=== PATIENT | female | born 1990 | race Two or more races ===

== ENCOUNTER 2023-09-19 15:22 | Inpatient (IN) | payer MEDICAID, SELFPAY ==
[2023-09-19 16:28] VITALS: BP 117/77; PULSE 88; RESP 16; TEMP 36.8; O2SAT 100
[2023-09-19 16:30] VITALS: BMI 29.8
--- NOTE | 2023-09-19 16:47 | P.CONHOSP_ITS ---
History of Present Illness Data of Consult Service Date: 09/19/23 Primary Care Provider: Unknown Physician HPI Reason for consult: Admission H&P Pt is a 33-year-old female with no known significant PMH not on home medications who is admitted to M3 psychiatry unit for labile affect and bizarre behavior. Patient was apparently found in [facility] parking lot with her car running and acting oddly, including delayed response and crying over the beauty of the dictionary, which she describes as ?the most beautiful book I have ever read. In the ED patient was initially resistant and refused crisis evaluation or to allow medical examination or labs. Medical consult for admission H&P. ?Patient seen and examined on the unit where she is calm and cooperative, though with poor eye contact and delayed response for many questions. Patient denies any significant PMH or acute medical concerns. No shortness of breath or difficulty breathing. Denies fever, chills, nausea, vomiting, abdominal pain. No chest pain/pressure, palpitations. Denies headache or acute vision changes. No changes to bowel bladder habits. Review of Systems 2 Review of Systems: Patient has no acute medical concerns at this time [facility] Social History Household Members: Children Household Members Other:: son, staying with dad currently Housing: [facility] Housing Other:: [facility] Do you presently have visiting nurse or other home services: No Patient Tobacco Use Status: Current everyday Tobacco user Tobacco use type: Cigarette Cigarette Packs Per Day: 1 Cigarettes Per Day: 20.0 Smoked in Last 30 Days: Yes e-Cigarette/Vaping Use: Former Use Patient Interested in Nicotine Replacement: Yes Patient Given Instructions on How to Stop Smoking: Yes Date Education Initiated: 09/19/23 Second Hand Smoke Exposure: No Use of substances other than those prescribed or required for medical reasons: Yes Substance Use Type: [employer] Drugs, Crack/Cocaine, Former Substance User and Painkillers Substance Use Type Other:: years ago Last Used Substance: Unknown Last Used Substance Other:: years ago Currently Displaying Signs/Symptoms of Drug Intoxication Withdrawal: No Any prior treatment program specific to substance use: No Have you been hit, kicked, punched, or otherwise hurt by someone within the past year? If so, by whom?: No Do you feel safe in your current relationship?: No Is there a partner from a previous relationship who is making you feel unsafe now?: No Are you made to feel afraid or neglected: No Spiritual Healthcare Practices: Not at this time Yazdanism Healthcare Practices: Not at this time Cultural Healthcare Practices: Not at this time Advance Directives: No Advance Directives Information Provided: No Do you have thoughts of harming others: None Do you have a plan to hurt others: No Plan Recently lost weight without trying: No How much weight loss: Not applicable Eating poorly because of decreased appetite: No Nutrition screen score: 0 Nutrition Risks: No Nutritional Risk Patient : No : No Poor oral hygiene: No Meds Allergies Allergy/AdvReac Type Severity Reaction Status Date / Time No Known Allergies Allergy Verified 09/19/23 16:19 Active Medications: Current Medications Acetaminophen (Acetaminophen 325 Mg Tablet) 650 mg PO Q6H PRN PRN Reason: Headache/Pain Mild Scale (1-3) Al Hydroxide/Mg Hydroxide (Magnesium Hydrox/Alum Hydrox 30 Ml Oral.Susp) 30 ml PO Q6H PRN PRN Reason: Heartburn/Nausea Hydroxyzine HCl (Hydroxyzine Hcl 25 Mg Tablet) 25 mg PO Q6H PRN PRN Reason: Anxiety Magnesium Hydroxide (Milk Of Magnesia 30 Ml Oral.Susp) 30 ml PO DAILY PRN PRN Reason: Constipation Nicotine (Nicotine 21 Mg Patch.Td24) 21 mg TRANSDERMA DAILY [facility] Nicotine Polacrilex (Nicotine Polacrilex Lozenge 4 Mg Lozenge) 4 mg BUCCAL Q2H PRN PRN Reason: Nicotine Cravings Trazodone HCl (Trazodone Hcl 50 Mg Tablet) 50 mg PO BEDTIME MRX1 PRN PRN Reason: Insomnia Physical Exam 2 Vital Signs and Narrative: Vital Signs: Last Vital Signs Temp 98.2 F 09/19/23 16:28 Pulse 88 09/19/23 16:28 Resp 16 09/19/23 16:28 BP 117/77 09/19/23 16:28 Pulse Ox 100 09/19/23 16:28 O2 Del Method Room Air 09/19/23 16:28 BMI result Body Mass Index 29.8 General: AOx3, no acute distress Resp: CTA bilaterally CVS: S1, S2, RRR GI: +BS, NT, no distention Skin: Warm, dry Neuro: Cranial nerves II-XII grossly intact bilaterally. Motor grossly intact bilaterally. Extremities: No edema Psych: Calm, cooperative, minimal eye contact while responding, delayed response Results Labs 09/20/23 09:12 Assessment and Plan (1) Medical clearance for psychiatric admission: Status: Acute Plan Pt is a 33-year-old female with no known significant PMH not on home medications who is admitted to psychiatry unit for labile affect and bizarre behavior. Patient was apparently found in [facility] parking lot with her car running and acting oddly, including delayed response and crying over the beauty of the dictionary, which she describes as ?the most beautiful book I have ever read. In the ED patient was initially resistant and refused crisis evaluation or to allow medical examination or labs. Medical consult for admission H&P. ? Mood disorder Plan as per psychiatry Pt otherwise has no known chronic medical conditions or acute medical complaints at this time. Will sign off for now. Thank you for allowing us to participate in the care of this patient. Please re-consult if any acute issue arises.
--- NOTE | 2023-09-19 17:19 | PC.ADMIT ---
Nursing admission note: 33 year old female DX: BiPolar disorder. Referref for admission by [facility]. Patient arrived to unit on section 12a, signed conditional voluntary for admission after speaking with ELISABET KEVIN. Patient was transported to [facility] via EMS after being found in her car with it running at [facility] for about 4 hours. She was in her car reading a book when police approached her, disorganized, and under some form of substance . She was giggling to herself then began crying saying how beautiful the book was; of note, the book was a dictionary. Patient was calm and cooperative with admission process. Skin check completed with ancillary staff AB. Unremarkable. Patient presents with intermittent eye contact, frequently looking around room. Endorses depression, rated 6/10, anxiety rated 3/10. Affect congruent. Denies SI/HI plan or intent. Responds to assessment questions however little spontaneous discussion. Appears preoccupied. Poverty of thought with latency in response. Denies A/V hallucinations, denies paranoia or suspiciousness. Patient is poor historian. Speech in monotone. Denies sleep or appetite disturbances. Reports prior hospitalization for behavioral health. Denies medical problems. NKA, NKDA. TOX screen negative. Patient oriented to unit, placed on unit safety checks. See crisis evaluation/nursing assessment for further details.
[2023-09-19] MEDS: Nicotine Polacrilex Lozenge 4 MG LOZENGE BUCCAL (18:53)
[2023-09-20] MEDS: Nicotine Polacrilex Lozenge 4 MG LOZENGE BUCCAL ×2 (06:16→23:15)
[2023-09-20 08:00] VITALS: BP 101/59; PULSE 87; RESP 14; TEMP 37; O2SAT 99
--- NOTE | 2023-09-20 09:18 | P.HPPS_ITS ---
HPI Date of Service: 09/20/23 Chief Complaint: Bipolar Sources of Information: patient interviewed, chart reviewed and crisis/core team assessment reviewed HPI Subjective Notes: Sparks Warning and Conditional Voluntary Narrative: Patient is a 33 year old female with hx of Bipolar d/o who was brought into ER d/t confusion and disorganized behavior. Per crisis report, pt was found in her car with it running at [facility] for about four hours, reading a book, when the police approached her, pt presented disorganized, giggling to herself and then began crying, saying how beautiful the book was; of note, the book was a dictionary. Pt denied SI/HI/VH/AH. Pt resides in [place], [place]; where the police have been called for multiple wellness check in recent months. Pt provided minimal information during crisis assessment. 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 denies any substance use;UTOX negative. During admission assessment, social media editor, Bel, present. Pt presents alert and oriented, calm, cooperative but guarded. delayed responses to questions. Pt stated, they brought me to the hospital because I was confused and disoriented. I was reading in a place I shouldn't have been reading. I was reading a beautiful book, the dictionary. It made me cry. I saw the meanings of things that I didn't know were beautiful ; pt became tearful when discussing topic. Pt hesitant when answering questions regarding her living situation, marital status and occupation. Pt reports she has been hospitalized several times ; but could not provide further details. Pt reports hx of taking [place] but had a bad reaction ; pt could not provide any more detail and does not recall other medications she has tried in the past. Pt stated, I'll take whatever you give me to feel better ; discussed risks/benefits of Depakote and Risperidal; pt agreed to trial. Past Psychiatric History: Pt reports she has been psychiatrically hospitalized several times; last inpatient admission being March 2023. Pt was unable to state name of hospital or reason for hospitalization. Pt reports she does not have an outpatient therapist. Outpatient prescirber: Amari Otoole Medical Evaluation Reviewed: Yes [facility] Family History: unknown Social History: lives alone, single, 1 son (10 y/o, lives with his father), works emergency department clinician as hairdresser Substance History: hx of cocaine, marijuana and opioid use. pt reports has not used substances in 7 years. Trauma History: yes;childhood Diagnostics Vital Signs (24Hr): Vital Signs - 24 hr 09/19/23 16:28 09/20/23 08:00 Temperature 98.2 F 98.6 F Pulse Rate 88 87 Respiratory Rate 16 14 Blood Pressure 117/77 101/59 L Pulse Oximetry 100 99 Oxygen Delivery Method Room Air Room Air BMI result Body Mass Index 29.8 Labs 09/20/23 09:12 Meds/Allergies Allergies Allergies Allergy/AdvReac Type Severity Reaction Status Date / Time No Known Allergies Allergy Verified 09/19/23 16:19 Mental Status Exam Mental Status Exam Narrative: Pt is alert and oriented; behavior is cooperative, calm, guarded; dressed in casual attire; mood is described as okay ; eye contact appropriate; Speech is delayed,normal volume and not pressured; confused, slowed thinking; denies SI/HI/VH/AH Assessment & Plan Assessment & Plan (1) Bipolar 1 disorder: Status: Acute Code(s): F31.9 - Bipolar disorder, unspecified (2) PTSD (post-traumatic stress disorder): Status: Acute Code(s): F43.10 - Post-traumatic stress disorder, unspecified Plan Patient is a 33 year old female with hx of Bipolar d/o who was brought into ER d/t confusion and disorganized behavior. Plan: CV 15 minute safety checks obtain collateral Start: Depakote 250mg PO BID Risperidal 1mg PO BID Cogentin 0.5mg PO bedtime discharge planning Patient educated on: diagnosis, medication risk/benefits and therapeutic strategies Informed Consent: understands and further education needed Reason for continued inpatient stay Substantial Risk for: med/psych decompensation Statement Statement: I have reviewed the history and physical and performed a pertinent examination on my patient. No changes have occurred unless specified. If the History and Physical was not performed prior to admission, the Hospitalist's service will be consulted for completing the admission physical. Time Spent With Patient Time: Total time managing care of this patient today _60___ minutes.
[2023-09-20 10:00] LABS: Alanine Aminotransferase 8 U/L (0-31); Albumin Level 4.8 g/dL (3.5-5.0); Alkaline Phosphatase 56 U/L (39-117); Anion Gap 12 (12-20); Aspartate Amino Transferase 12 U/L (5-31); Bilirubin Total 0.5 mg/dL (0.0-1.0); Blood Urea Nitrogen 12 mg/dL (9-16); Calcium 9.7 mg/dL (8.4-10.2); Carbon Dioxide 28 mmol/L (22-29); Chloride 106 mmol/L (96-108); Cholesterol 175 mg/dL (<200); Creatinine Clr Calc Pharmacy 107.2; Estimated Glomerular Filt Rate > 60; Glucose Fasting 83 mg/dL (60-99); HDL Cholesterol 58 mg/dL (>40); LDL Cholesterol Calculated 106 mg/dL (<100); Potassium 3.9 mmol/L (3.3-5.1); Sodium 142 mmol/L (135-145); Total Protein 7.3 g/dL (6.5-8.0); Triglycerides 57 mg/dL (<150)
[2023-09-20] MEDS: Nicotine 21 MG PATCH.TD24 TRANSDERMA (10:12)
[2023-09-20] MEDS: risperiDONE 1 MG TABLET PO ×2 (17:41→22:43)
[2023-09-20] MEDS: Divalproex Sodium 250 MG TABLET.DR PO ×2 (18:00→22:43)
[2023-09-20 20:00] VITALS: BP 95/54; PULSE 96; RESP 18; TEMP 36.8; O2SAT 97
[2023-09-20] MEDS: Benztropine Mesylate 0.5 MG TABLET PO (22:43)
[2023-09-21 07:46] VITALS: BP 110/65; PULSE 97; RESP 16; TEMP 36.6; O2SAT 100
[2023-09-21] MEDS: Nicotine 21 MG PATCH.TD24 TRANSDERMA (08:40)
[2023-09-21] MEDS: Nicotine Polacrilex Lozenge 4 MG LOZENGE BUCCAL ×2 (08:41→18:05)
--- NOTE | 2023-09-21 08:58 | P.PNPSI_ITS ---
Subjective Subjective Date of Service: 09/21/23 Reason For Visit: Bipolar Interim History: Patient reports she doesn't want to take her medications because I didn't feel good when I took them and couldn't sleep She is guarded and has some latency responding to questions. She is not willing to try other medications today. She says she doesn't want to retry [place]. Denies SI/HI/AVH. Appears internally preoccupied. Review of Systems Review of Systems Patient has no acute medical concerns at this time Constitutional: Reports as per HPI Eyes: Reports as per HPI Reports as per HPI Cardiovascular: Reports as per HPI Respiratory: Reports as per HPI Gastrointestinal: Reports as per HPI Musculoskeletal: Reports as per HPI Skin/Breast: Reports as per HPI Reports as per HPI Psychiatric: Reports as per HPI Endocrine: Reports as per HPI Hematologic/Lymphatic: Reports as per HPI Allergic/Immunologic: Reports as per HPI Mental Status Exam Mental Status Exam Narrative: Pt is alert and oriented; behavior is cooperative, calm, guarded; dressed in casual attire; mood is described as okay ; eye contact appropriate; Speech is delayed,normal volume and not pressured; confused, slowed thinking; denies SI/HI/VH/AH Diagnostics Vital Signs (24Hr): Vital Signs - 24 hr 09/20/23 20:00 09/21/23 07:46 Temperature 98.3 F 97.9 F Pulse Rate 96 97 Respiratory Rate 18 16 Blood Pressure 95/54 L 110/65 Pulse Oximetry 97 100 Oxygen Delivery Method Room Air Room Air BMI result Body Mass Index 29.8 Labs 09/20/23 09:12 Labs: Laboratory Results - last 48 hr 09/20/23 09:12 Sodium 142 Potassium 3.9 Chloride 106 Carbon Dioxide 28 Anion Gap 12 BUN 12 Creatinine 0.73 Estim Creat Clear Calc 107.2 Estimated GFR > 60 Fasting Glucose 83 Calcium 9.7 Total Bilirubin 0.5 AST 12 ALT 8 Alkaline Phosphatase 56 Total Protein 7.3 Albumin 4.8 Triglycerides 57 Cholesterol 175 LDL Cholesterol, Calc 106 H HDL Cholesterol 58 Medications Medications Current Medications Acetaminophen (Acetaminophen 325 Mg Tablet) 650 mg PO Q6H PRN PRN Reason: Headache/Pain Mild Scale (1-3) Al Hydroxide/Mg Hydroxide (Magnesium Hydrox/Alum Hydrox 30 Ml Oral.Susp) 30 ml PO Q6H PRN PRN Reason: Heartburn/Nausea Benztropine Mesylate (Benztropine Mesylate 0.5 Mg Tablet) 0.5 mg PO BEDTIME [facility] Last Admin: 09/20/23 22:43 Dose: 0.5 mg Divalproex Sodium (Divalproex Sodium 250 Mg Tablet.Dr) 250 mg PO BID [facility] Last Admin: 09/20/23 22:43 Dose: 250 mg Hydroxyzine HCl (Hydroxyzine Hcl 25 Mg Tablet) 25 mg PO Q6H PRN PRN Reason: Anxiety Magnesium Hydroxide (Milk Of Magnesia 30 Ml Oral.Susp) 30 ml PO DAILY PRN PRN Reason: Constipation Nicotine (Nicotine 21 Mg Patch.Td24) 21 mg TRANSDERMA DAILY [facility] Last Admin: 09/21/23 08:40 Dose: 21 mg Nicotine Polacrilex (Nicotine Polacrilex Lozenge 4 Mg Lozenge) 4 mg BUCCAL Q2H PRN PRN Reason: Nicotine Cravings Last Admin: 09/21/23 08:41 Dose: 4 mg Risperidone (Risperidone 1 Mg Tablet) 1 mg PO BID [facility] Last Admin: 09/20/23 22:43 Dose: 1 mg Trazodone HCl (Trazodone Hcl 50 Mg Tablet) 50 mg PO BEDTIME MRX1 PRN PRN Reason: Insomnia Allergies Allergies Allergy/AdvReac Type Severity Reaction Status Date / Time No Known Allergies Allergy Verified 09/19/23 16:19 Assessment & Plan Assessment & Plan (1) Bipolar 1 disorder: Status: Acute Code(s): F31.9 - Bipolar disorder, unspecified (2) PTSD (post-traumatic stress disorder): Status: Acute Code(s): F43.10 - Post-traumatic stress disorder, unspecified Plan Patient is a 33 year old female with hx of Bipolar d/o who was brought into ER d/t confusion and disorganized behavior. Plan: CV 15 minute safety checks obtain collateral Start: Depakote 250mg PO BID Risperidal 1mg PO BID Cogentin 0.5mg PO bedtime discharge planning 09/20: continue current management and treatment plan. Consider alternative medication regimen and explore resistance to medications. Reason for continued inpatient stay Substantial Risk for: inability to function and rapid decompensation Time Spent With Patient Time: Total time managing care of this patient today ____ minutes.
[2023-09-21 20:00] VITALS: BP 110/68; PULSE 98; RESP 18; TEMP 36.8; O2SAT 100
[2023-09-22 07:41] VITALS: BP 111/67; PULSE 92; RESP 16; TEMP 36.5; O2SAT 100
--- NOTE | 2023-09-22 16:00 | P.PNPSI_ITS ---
Subjective Subjective Date of Service: 09/22/23 Reason For Visit: Bipolar Interim History: Patient remains guarded and paranoid. She is refusing medications saying she didn't feel well when she took them and that she doesn't need medications. She is visible on the unit but doesn't interact much with others. She appeared paranoid before lunch and refused to have her lunch and pushed it away. Later she asked for it and ate 100%. She is guarded and has some latency responding to questions. She is not willing to try other medications. She says she doesn't want to retry [place]. Denies SI/HI/AVH. Appears internally preoccupied. Medication Compliance: No Side effects from medications: No Review of Systems Review of Systems Patient has no acute medical concerns at this time Constitutional: Reports as per HPI Eyes: Reports as per HPI Reports as per HPI Cardiovascular: Reports as per HPI Respiratory: Reports as per HPI Gastrointestinal: Reports as per HPI Musculoskeletal: Reports as per HPI Skin/Breast: Reports as per HPI Reports as per HPI Psychiatric: Reports as per HPI Endocrine: Reports as per HPI Hematologic/Lymphatic: Reports as per HPI Allergic/Immunologic: Reports as per HPI Mental Status Exam Mental Status Exam Narrative: Pt is alert and oriented; behavior is cooperative, calm, guarded; dressed in casual attire; mood is described as okay ; eye contact appropriate; Speech is delayed,normal volume and not pressured; confused, slowed thinking; denies SI/HI/VH/AH Diagnostics Vital Signs (24Hr): Vital Signs - 24 hr 09/21/23 20:00 09/22/23 07:41 Temperature 98.2 F 97.7 F Pulse Rate 98 92 Respiratory Rate 18 16 Blood Pressure 110/68 111/67 Pulse Oximetry 100 100 Oxygen Delivery Method Room Air Room Air BMI result Body Mass Index 29.8 Labs 09/20/23 09:12 Medications Medications Current Medications Acetaminophen (Acetaminophen 325 Mg Tablet) 650 mg PO Q6H PRN PRN Reason: Headache/Pain Mild Scale (1-3) Al Hydroxide/Mg Hydroxide (Magnesium Hydrox/Alum Hydrox 30 Ml Oral.Susp) 30 ml PO Q6H PRN PRN Reason: Heartburn/Nausea Benztropine Mesylate (Benztropine Mesylate 0.5 Mg Tablet) 0.5 mg PO BEDTIME [facility] Last Admin: 05/25/24 22:14 Dose: Not Given Divalproex Sodium (Divalproex Sodium 250 Mg Tablet.Dr) 250 mg PO BID [facility] Last Admin: 09/22/23 08:47 Dose: Not Given Hydroxyzine HCl (Hydroxyzine Hcl 25 Mg Tablet) 25 mg PO Q6H PRN PRN Reason: Anxiety Magnesium Hydroxide (Milk Of Magnesia 30 Ml Oral.Susp) 30 ml PO DAILY PRN PRN Reason: Constipation Nicotine (Nicotine 21 Mg Patch.Td24) 21 mg TRANSDERMA DAILY [facility] Last Admin: 09/22/23 08:47 Dose: Not Given Nicotine Polacrilex (Nicotine Polacrilex Lozenge 4 Mg Lozenge) 4 mg BUCCAL Q2H PRN PRN Reason: Nicotine Cravings Last Admin: 09/21/23 18:05 Dose: 4 mg Risperidone (Risperidone 1 Mg Tablet) 1 mg PO BID [facility] Last Admin: 09/22/23 08:48 Dose: Not Given Trazodone HCl (Trazodone Hcl 50 Mg Tablet) 50 mg PO BEDTIME MRX1 PRN PRN Reason: Insomnia Allergies Allergies Allergy/AdvReac Type Severity Reaction Status Date / Time No Known Allergies Allergy Verified 09/19/23 16:19 Assessment & Plan Assessment & Plan (1) Bipolar 1 disorder: Status: Acute Code(s): F31.9 - Bipolar disorder, unspecified (2) PTSD (post-traumatic stress disorder): Status: Acute Code(s): F43.10 - Post-traumatic stress disorder, unspecified Plan Patient is a 33 year old female with hx of Bipolar d/o who was brought into ER d/t confusion and disorganized behavior. Plan: CV 15 minute safety checks obtain collateral Start: Depakote 250mg PO BID Risperidal 1mg PO BID Cogentin 0.5mg PO bedtime discharge planning 09/20: continue current management and treatment plan. Consider alternative medication regimen and explore resistance to medications. 09/21: continue current management and treatment plan. Reason for continued inpatient stay Substantial Risk for: inability to function and rapid decompensation Time Spent With Patient Time: Total time managing care of this patient today ____ minutes.
[2023-09-22 20:00] VITALS: BP 115/56; PULSE 89; RESP 16; TEMP 36.9; O2SAT 95
[2023-09-22] MEDS: Nicotine Polacrilex Lozenge 4 MG LOZENGE BUCCAL (22:05)
[2023-09-23] MEDS: Nicotine Polacrilex Lozenge 4 MG LOZENGE BUCCAL ×4 (06:43→18:39)
[2023-09-23 08:01] LABS: Ammonia 26 umol/L (13-55)
[2023-09-23 08:07] LABS: Alanine Aminotransferase 8 U/L (0-31); Albumin Level 4.8 g/dL (3.5-5.0); Alkaline Phosphatase 66 U/L (39-117); Aspartate Amino Transferase 13 U/L (5-31); Bilirubin Direct 0.1 mg/dL (0.0-0.5); Bilirubin Total 0.4 mg/dL (0.0-1.0); Total Protein 7.6 g/dL (6.5-8.0)
[2023-09-23 08:10] VITALS: BP 110/72; PULSE 100; RESP 14; TEMP 36.9; O2SAT 98
[2023-09-23 08:11] LABS: Valproate < 12.5 mcg/mL (50.0-100.0)
--- NOTE | 2023-09-23 10:53 | P.PNPSI_ITS ---
Subjective Subjective Date of Service: 09/23/23 Reason For Visit: Bipolar Interim History: Patient is reserved with peers. She is not taking medications. She maintains she was dehydrated which is why she got confused and disoriented the day she was admitted to the hospital and goes on to talk about her apartment not having clean water and that she didn't buy clean water and wasn't drinking. Guarded and paranoid. She is refusing medications. She is visible on the unit but doesn't interact much with others. Denies SI/HI/AVH. Appears internally preoccupied at times. Review of Systems Review of Systems Patient has no acute medical concerns at this time Constitutional: Reports as per HPI Eyes: Reports as per HPI Reports as per HPI Cardiovascular: Reports as per HPI Respiratory: Reports as per HPI Gastrointestinal: Reports as per HPI Musculoskeletal: Reports as per HPI Skin/Breast: Reports as per HPI Reports as per HPI Psychiatric: Reports as per HPI Endocrine: Reports as per HPI Hematologic/Lymphatic: Reports as per HPI Allergic/Immunologic: Reports as per HPI Mental Status Exam Mental Status Exam Narrative: Pt is alert and oriented; behavior is cooperative, calm, guarded; dressed in casual attire; mood is described as okay ; eye contact appropriate; Speech is delayed,normal volume and not pressured; confused, slowed thinking; denies SI/HI/VH/AH Diagnostics Vital Signs (24Hr): Vital Signs - 24 hr 09/22/23 20:00 09/23/23 08:10 Temperature 98.5 F 98.5 F Pulse Rate 89 100 Respiratory Rate 16 14 Blood Pressure 115/56 L 110/72 Pulse Oximetry 95 98 Oxygen Delivery Method Room Air Room Air BMI result Body Mass Index 29.8 Labs 09/20/23 09:12 Labs: Laboratory Results - last 48 hr 09/23/23 07:27 Hold Purple Top SEE NOTE Total Bilirubin 0.4 Direct Bilirubin 0.1 AST 13 ALT 8 Alkaline Phosphatase 66 Ammonia 26 Total Protein 7.6 Albumin 4.8 Valproic Acid < 12.5 L Medications Medications Current Medications Acetaminophen (Acetaminophen 325 Mg Tablet) 650 mg PO Q6H PRN PRN Reason: Headache/Pain Mild Scale (1-3) Al Hydroxide/Mg Hydroxide (Magnesium Hydrox/Alum Hydrox 30 Ml Oral.Susp) 30 ml PO Q6H PRN PRN Reason: Heartburn/Nausea Benztropine Mesylate (Benztropine Mesylate 0.5 Mg Tablet) 0.5 mg PO BEDTIME [facility] Last Admin: 09/22/23 22:10 Dose: Not Given Divalproex Sodium (Divalproex Sodium 250 Mg Tablet.Dr) 250 mg PO BID [facility] Last Admin: 09/23/23 08:34 Dose: Not Given Hydroxyzine HCl (Hydroxyzine Hcl 25 Mg Tablet) 25 mg PO Q6H PRN PRN Reason: Anxiety Magnesium Hydroxide (Milk Of Magnesia 30 Ml Oral.Susp) 30 ml PO DAILY PRN PRN Reason: Constipation Nicotine (Nicotine 21 Mg Patch.Td24) 21 mg TRANSDERMA DAILY [facility] Last Admin: 09/23/23 08:34 Dose: Not Given Nicotine Polacrilex (Nicotine Polacrilex Lozenge 4 Mg Lozenge) 4 mg BUCCAL Q2H PRN PRN Reason: Nicotine Cravings Last Admin: 09/23/23 09:35 Dose: 4 mg Risperidone (Risperidone 1 Mg Tablet) 1 mg PO BID [facility] Last Admin: 09/23/23 08:34 Dose: Not Given Trazodone HCl (Trazodone Hcl 50 Mg Tablet) 50 mg PO BEDTIME MRX1 PRN PRN Reason: Insomnia Allergies Allergies Allergy/AdvReac Type Severity Reaction Status Date / Time No Known Allergies Allergy Verified 09/19/23 16:19 Assessment & Plan Assessment & Plan (1) Bipolar 1 disorder: Status: Acute Code(s): F31.9 - Bipolar disorder, unspecified (2) PTSD (post-traumatic stress disorder): Status: Acute Code(s): F43.10 - Post-traumatic stress disorder, unspecified Plan Patient is a 33 year old female with hx of Bipolar d/o who was brought into ER d/t confusion and disorganized behavior. Plan: CV 15 minute safety checks obtain collateral Start: Depakote 250mg PO BID Risperidal 1mg PO BID Cogentin 0.5mg PO bedtime discharge planning 09/20: continue current management and treatment plan. Consider alternative medication regimen and explore resistance to medications. 09/21: continue current management and treatment plan. 09/22: continue current management and treatment plan. Reason for continued inpatient stay Substantial Risk for: inability to function Time Spent With Patient Time: Total time managing care of this patient today ____ minutes.
[2023-09-23 20:00] VITALS: BP 116/73; PULSE 100; RESP 14; TEMP 36.8; O2SAT 100
[2023-09-24] MEDS: Nicotine Polacrilex Lozenge 4 MG LOZENGE BUCCAL ×5 (04:15→22:23)
[2023-09-24 07:15] VITALS: BP 119/80; PULSE 88; RESP 16; TEMP 36.6; O2SAT 100
--- NOTE | 2023-09-24 12:59 | P.PNPSI_ITS ---
Subjective Subjective Date of Service: 09/24/23 Reason For Visit: Bipolar Subjective Notes: Conditional Voluntary Healthcare Proxy: No Guardianship: No Medical Problems Affecting Mental Status: No Interim History: Team reports pt has refused medications during the weekend (Valproate, Risperdal, Benztropine). She is not open to a retrial of [place] or any other new agents at this time, citing medications cause her not to feel well and to have poor sleep. She cites rationale for symptoms prior to admission as being from dehydration. Team reports she has had a guarded, paranoid and isolative presentation. No new diagnostics, CMP is WNL, Valproate <12.5. Slept 5 hours last night. She is seen in her room today, awake, in bed. She reports she is well, sleeping well, feeling well but a bit depressed today and wanting to get back to her life. She continues to decline medication trials, stating that when discharged she plans to contact her former medication provider, Am[facility] of [place] to discuss a regime. Offered to make contact so she may begin an agent while hospitalized, however she declined. Reviewed with team. Pt has had a presentation change since her primary nurse working with her on 09/19-she had agreed to medications on admission. Denies SI/HI/AH/VH Medication Compliance: No Side effects from medications: No Attending Groups: Intermittent Review of Systems Acute medical concerns: No Medical Review of Systems: unchanged Review of Systems Review of Systems Yes all other systems are reviewed and are negative (denies) Mental Status Exam Mental Status Exam Patient Appearance: Appropriate Patient Orientation: Person, Place and Situation Level of Consciousness: Alert Patient Behavior: Guarded, Talkative, Cooperative, Suspicious and Good Eye Contact Mood Description: Constricted Affect Description: Constricted Patient Cognition Impaired: No Speech Pattern: Spontaneous Speech Memory Description: Episodic Impaired Delusions: Paranoid Ideation and Present Thought Process: Distracted Thought Content: positive for Circumstantial, positive for Perseveration and positive for Suicidal Ideation (denies) Depressive Symptoms: Difficulty Sleeping Judgement: Fair Diagnostics Vital Signs (24Hr): Vital Signs - 24 hr 09/23/23 20:00 09/24/23 07:15 Temperature 98.3 F 97.9 F Pulse Rate 100 88 Respiratory Rate 14 16 Blood Pressure 116/73 119/80 Pulse Oximetry 100 100 Oxygen Delivery Method Room Air Room Air BMI result Body Mass Index 29.8 Labs 05/24/24 09:12 Labs: Laboratory Results - last 48 hr 09/23/23 07:27 Hold Purple Top SEE NOTE Total Bilirubin 0.4 Direct Bilirubin 0.1 AST 13 ALT 8 Alkaline Phosphatase 66 Ammonia 26 Total Protein 7.6 Albumin 4.8 Valproic Acid < 12.5 L Medications Medications Current Medications Acetaminophen (Acetaminophen 325 Mg Tablet) 650 mg PO Q6H PRN PRN Reason: Headache/Pain Mild Scale (1-3) Al Hydroxide/Mg Hydroxide (Magnesium Hydrox/Alum Hydrox 30 Ml Oral.Susp) 30 ml PO Q6H PRN PRN Reason: Heartburn/Nausea Benztropine Mesylate (Benztropine Mesylate 0.5 Mg Tablet) 0.5 mg PO BEDTIME [facility] Last Admin: 09/23/23 21:47 Dose: Not Given Divalproex Sodium (Divalproex Sodium 250 Mg Tablet.Dr) 250 mg PO BID [facility] Last Admin: 09/24/23 08:20 Dose: Not Given Hydroxyzine HCl (Hydroxyzine Hcl 25 Mg Tablet) 25 mg PO Q6H PRN PRN Reason: Anxiety Magnesium Hydroxide (Milk Of Magnesia 30 Ml Oral.Susp) 30 ml PO DAILY PRN PRN Reason: Constipation Nicotine (Nicotine 21 Mg Patch.Td24) 21 mg TRANSDERMA DAILY [facility] Last Admin: 09/24/23 08:20 Dose: Not Given Nicotine Polacrilex (Nicotine Polacrilex Lozenge 4 Mg Lozenge) 4 mg BUCCAL Q2H PRN PRN Reason: Nicotine Cravings Last Admin: 09/24/23 10:37 Dose: 4 mg Risperidone (Risperidone 1 Mg Tablet) 1 mg PO BID [facility] Last Admin: 09/24/23 08:20 Dose: Not Given Trazodone HCl (Trazodone Hcl 50 Mg Tablet) 50 mg PO BEDTIME MRX1 PRN PRN Reason: Insomnia Allergies Allergies Allergy/AdvReac Type Severity Reaction Status Date / Time No Known Allergies Allergy Verified 09/19/23 16:19 Assessment & Plan Assessment & Plan (1) Bipolar 1 disorder: Status: Acute Code(s): F31.9 - Bipolar disorder, unspecified (2) PTSD (post-traumatic stress disorder): Status: Acute Code(s): F43.10 - Post-traumatic stress disorder, unspecified Plan Patient is a 33 year old female with hx of Bipolar d/o who was brought into ER d/t confusion and disorganized behavior. Plan: CV 15 minute safety checks obtain collateral Start: Depakote 250mg PO BID Risperidal 1mg PO BID Cogentin 0.5mg PO bedtime discharge planning 09/20: continue current management and treatment plan. Consider alternative medication regimen and explore resistance to medications. 09/21: continue current management and treatment plan. 09/22: continue current management and treatment plan. 09/23: continue to offer options for treatment. Reason for continued inpatient stay Substantial Risk for: rapid decompensation Time Spent With Patient Time: Total time managing care of this patient today ____ minutes.
[2023-09-24 20:00] VITALS: BP 114/68; PULSE 89; RESP 14; TEMP 36.5; O2SAT 97
[2023-09-25] MEDS: Nicotine Polacrilex Lozenge 4 MG LOZENGE BUCCAL ×5 (06:50→21:47)
[2023-09-25 07:05] VITALS: BP 110/71; PULSE 98; RESP 16; TEMP 37.1; O2SAT 100
--- NOTE | 2023-09-25 09:54 | P.PNPSI_ITS ---
Subjective Subjective Date of Service: 09/25/23 Reason For Visit: Bipolar Subjective Notes: Conditional Voluntary Healthcare Proxy: No Guardianship: No Medical Problems Affecting Mental Status: No Interim History: Pt allows a brief conversation in the hallway where she reports, no change. No meds, no calling my psychiatrist. I am doing well here, without medicine, with the treatment I choose to do. Presents with a suspicious, guarded, evasive stance. Declines treatment, yet not asking to leave. When this is attempted to be addressed, yes, I am being helped here, without medication. Medication Compliance: No Side effects from medications: No Attending Groups: Intermittent ( sometimes ) Review of Systems Acute medical concerns: No Medical Review of Systems: unchanged Review of Systems Review of Systems Yes all other systems are reviewed and are negative (denies) Mental Status Exam Mental Status Exam Patient Appearance: Appropriate Patient Orientation: Person, Place and Situation Level of Consciousness: Alert Patient Behavior: Guarded, Talkative, Cooperative, Suspicious and Good Eye Contact Mood Description: Constricted Affect Description: Constricted Patient Cognition Impaired: No Speech Pattern: Spontaneous Speech Memory Description: Episodic Impaired Delusions: Paranoid Ideation and Present Thought Process: Distracted Thought Content: positive for Circumstantial, positive for Perseveration and positive for Suicidal Ideation (denies) Depressive Symptoms: Difficulty Sleeping Judgement: Fair Diagnostics Vital Signs (24Hr): Vital Signs - 24 hr 09/24/23 20:00 09/25/23 07:05 Temperature 97.7 F 98.7 F Pulse Rate 89 98 Respiratory Rate 14 16 Blood Pressure 114/68 110/71 Pulse Oximetry 97 100 Oxygen Delivery Method Room Air Room Air BMI result Body Mass Index 29.8 Labs 09/20/23 09:12 Medications Medications Current Medications Acetaminophen (Acetaminophen 325 Mg Tablet) 650 mg PO Q6H PRN PRN Reason: Headache/Pain Mild Scale (1-3) Al Hydroxide/Mg Hydroxide (Magnesium Hydrox/Alum Hydrox 30 Ml Oral.Susp) 30 ml PO Q6H PRN PRN Reason: Heartburn/Nausea Benztropine Mesylate (Benztropine Mesylate 0.5 Mg Tablet) 0.5 mg PO BEDTIME [facility] Last Admin: 09/24/23 22:07 Dose: Not Given Divalproex Sodium (Divalproex Sodium 250 Mg Tablet.) 250 mg PO BID [facility] Last Admin: 09/25/23 08:48 Dose: Not Given Hydroxyzine HCl (Hydroxyzine Hcl 25 Mg Tablet) 25 mg PO Q6H PRN PRN Reason: Anxiety Magnesium Hydroxide (Milk Of Magnesia 30 Ml Oral.Susp) 30 ml PO DAILY PRN PRN Reason: Constipation Nicotine (Nicotine 21 Mg Patch.Td24) 21 mg TRANSDERMA DAILY [facility] Last Admin: 09/25/23 08:48 Dose: Not Given Nicotine Polacrilex (Nicotine Polacrilex Lozenge 4 Mg Lozenge) 4 mg BUCCAL Q2H PRN PRN Reason: Nicotine Cravings Last Admin: 09/25/23 06:50 Dose: 4 mg Risperidone (Risperidone 1 Mg Tablet) 1 mg PO BID [facility] Last Admin: 09/25/23 08:49 Dose: Not Given Trazodone HCl (Trazodone Hcl 50 Mg Tablet) 50 mg PO BEDTIME MRX1 PRN PRN Reason: Insomnia Allergies Allergies Allergy/AdvReac Type Severity Reaction Status Date / Time No Known Allergies Allergy Verified 09/19/23 16:19 Assessment & Plan Assessment & Plan (1) Bipolar 1 disorder: Status: Acute Code(s): F31.9 - Bipolar disorder, unspecified (2) PTSD (post-traumatic stress disorder): Status: Acute Code(s): F43.10 - Post-traumatic stress disorder, unspecified Plan Patient is a 33 year old female with hx of Bipolar d/o who was brought into ER d/t confusion and disorganized behavior. Plan: CV 15 minute safety checks obtain collateral Start: Depakote 250mg PO BID Risperidal 1mg PO BID Cogentin 0.5mg PO bedtime discharge planning 09/20: continue current management and treatment plan. Consider alternative medication regimen and explore resistance to medications. 09/21: continue current management and treatment plan. 09/22: continue current management and treatment plan. 09/23: continue to offer options for treatment. 09/24: continue to offer options for treatment. Reason for continued inpatient stay Substantial Risk for: rapid decompensation Time Spent With Patient Time: Total time managing care of this patient today ____ minutes.
[2023-09-25 19:15] VITALS: BP 114/75; PULSE 110; RESP 18; TEMP 36.8; O2SAT 99
[2023-09-26] MEDS: Nicotine Polacrilex Lozenge 4 MG LOZENGE BUCCAL ×5 (06:58→18:23)
[2023-09-26 07:00] VITALS: BMI 26.6
[2023-09-26 07:45] VITALS: BP 110/73; PULSE 89; RESP 16; TEMP 36.4; O2SAT 98
--- NOTE | 2023-09-26 09:17 | P.PNPSI_ITS ---
Subjective Subjective Date of Service: 09/26/23 Reason For Visit: Bipolar Subjective Notes: Conditional Voluntary Interim History: Reviewed with Dr. Stover. Social with peers. attending groups. grain elevator workerBel, present for assessment. Pt reports feeling good today; pt stated, I'm feeling better without the meds. I plan on reaching out to my outpatient psychiatrist to talk about medications . When social work offered to make follow up appointment for patient; pt stated, no, it's okay. I can handle that stuff when I get home . Pt reports she ended up in [place] because it was my day off work, I was just going for a drive and listening to music. I ended up opening the Dictionary and found words to be beautiful. I'm telling you, open one up and see the words you never knew. It's great . Pt denies SI/HI/VH/AH. Plan to discharge patient tomorrow; pt agreeable to plan. Medication Compliance: No Attending Groups: Yes Review of Systems Constitutional: Reports as per HPI Eyes: Reports as per HPI Reports as per HPI Cardiovascular: Reports as per HPI Respiratory: Reports as per HPI Gastrointestinal: Reports as per HPI Genitourinary: Reports as per HPI Musculoskeletal: Reports as per HPI Skin/Breast: Reports as per HPI Reports as per HPI Psychiatric: Reports as per HPI Endocrine: Reports as per HPI Hematologic/Lymphatic: Reports as per HPI Allergic/Immunologic: Reports as per HPI Mental Status Exam Mental Status Exam Narrative: Pt is alert and oriented; behavior is cooperative, friendly and calm; dressed in casual attire; mood is described as good ; eye contact appropriate; Speech is normal rate, volume and prosody and not pressured; thought process is organized and goal directed; Thought content is on tx; denies SI/HI/VH/AH. Diagnostics Vital Signs (24Hr): Vital Signs - 24 hr 09/25/23 19:15 09/26/23 07:45 Temperature 98.2 F 97.6 F Pulse Rate 110 H 89 Respiratory Rate 18 16 Blood Pressure 114/75 110/73 Pulse Oximetry 99 98 Oxygen Delivery Method Room Air Room Air BMI result Body Mass Index 26.6 Labs 09/20/23 09:12 Medications Medications Current Medications Acetaminophen (Acetaminophen 325 Mg Tablet) 650 mg PO Q6H PRN PRN Reason: Headache/Pain Mild Scale (1-3) Al Hydroxide/Mg Hydroxide (Magnesium Hydrox/Alum Hydrox 30 Ml Oral.Susp) 30 ml PO Q6H PRN PRN Reason: Heartburn/Nausea Benztropine Mesylate (Benztropine Mesylate 0.5 Mg Tablet) 0.5 mg PO BEDTIME [facility] Last Admin: 09/25/23 22:40 Dose: Not Given Divalproex Sodium (Divalproex Sodium 250 Mg Tablet.Dr) 250 mg PO BID [facility] Last Admin: 09/26/23 08:51 Dose: Not Given Hydroxyzine HCl (Hydroxyzine Hcl 25 Mg Tablet) 25 mg PO Q6H PRN PRN Reason: Anxiety Magnesium Hydroxide (Milk Of Magnesia 30 Ml Oral.Susp) 30 ml PO DAILY PRN PRN Reason: Constipation Nicotine (Nicotine 21 Mg Patch.Td24) 21 mg TRANSDERMA DAILY [facility] Last Admin: 09/26/23 08:51 Dose: Not Given Nicotine Polacrilex (Nicotine Polacrilex Lozenge 4 Mg Lozenge) 4 mg BUCCAL Q2H PRN PRN Reason: Nicotine Cravings Last Admin: 09/26/23 06:58 Dose: 4 mg Risperidone (Risperidone 1 Mg Tablet) 1 mg PO BID [facility] Last Admin: 09/26/23 08:51 Dose: Not Given Trazodone HCl (Trazodone Hcl 50 Mg Tablet) 50 mg PO BEDTIME MRX1 PRN PRN Reason: Insomnia Allergies Allergies Allergy/AdvReac Type Severity Reaction Status Date / Time No Known Allergies Allergy Verified 09/19/23 16:19 Assessment & Plan Assessment & Plan (1) Bipolar 1 disorder: Status: Acute Code(s): F31.9 - Bipolar disorder, unspecified (2) PTSD (post-traumatic stress disorder): Status: Acute Code(s): F43.10 - Post-traumatic stress disorder, unspecified Plan Patient is a 33 year old female with hx of Bipolar d/o who was brought into ER d/t confusion and disorganized behavior. Plan: CV 15 minute safety checks obtain collateral Start: Depakote 250mg PO BID Risperidal 1mg PO BID Cogentin 0.5mg PO bedtime discharge planning 09/20: continue current management and treatment plan. Consider alternative medication regimen and explore resistance to medications. 09/21: continue current management and treatment plan. 09/22: continue current management and treatment plan. 09/23: continue to offer options for treatment. 09/24: continue to offer options for treatment. 09/15: Social with peers. attending groups. grain elevator worker, Bel, present for assessment. Pt reports feeling good today; pt stated, I'm feeling better without the meds. I plan on reaching out to my outpatient psychiatrist to talk about medications . When social work offered to make follow up appointment for patient; pt stated, no, it's okay. I can handle that stuff when I get home . Pt reports she ended up in [place] because it was my day off work, I was just going for a drive and listening to music. I ended up opening the Dictionary and found words to be beautiful. I'm telling you, open one up and see the words you never knew. It's great . Pt denies SI/HI/VH/AH. Pt reports she is currently not interested in starting any medications and would rather discuss with outpatient provider. Plan to discharge patient tomorrow; pt agreeable to plan. Patient educated on: diagnosis, medication risk/benefits and therapeutic strategies Informed Consent: understands Reason for continued inpatient stay Substantial Risk for: stable for discharge Time Spent With Patient Time: Total time managing care of this patient today _20___ minutes.
[2023-09-26 19:58] VITALS: BP 117/83; PULSE 92; RESP 16; TEMP 36.5; O2SAT 98
[2023-09-27] MEDS: Nicotine Polacrilex Lozenge 4 MG LOZENGE BUCCAL ×2 (07:10→09:21)
[2023-09-27 08:00] VITALS: BP 101/57; PULSE 89; RESP 16; TEMP 36.7; O2SAT 98
--- NOTE | 2023-09-27 08:53 | PM.PSYDC ---
DS: Providers Provider Date of Service: 09/27/23 Date of admission: 09/19/23 15:22 Date of discharge: 09/27/23 Primary care physician: Unknown Physician Admitting clinician: Pilar Schulte Attending physician on admission: Simone Stover Consults: 09/19/23 16:20 Consult to Hospitalist Routine Comment: Consulting Provider: Hospitalist Reason For Exam: H&P, new admit. Attending physician on discharge: Simone Stover Discharging clinician: Pilar Schulte DS: Diagnosis Discharge Diagnosis (1) Bipolar 1 disorder: Status: Acute (2) PTSD (post-traumatic stress disorder): Status: Acute Mental Status Exam Mental Status Exam Narrative: Pt is alert and oriented; behavior is cooperative, friendly and calm; dressed in casual attire; mood is described as good ; eye contact appropriate; Speech is normal rate, volume and prosody and not pressured; thought process is organized and goal directed; Thought content is on tx; denies SI/HI/VH/AH. Data Data Completed and Pending Completed studies during hospitalization [Text1]: 09/20/23 09/23/23 09:12 07:27 Hold Purple Top SEE NOTE Sodium 142 Potassium 3.9 Chloride 106 Carbon Dioxide 28 Anion Gap 12 BUN 12 Creatinine 0.73 Estim Creat Clear Calc 107.2 Estimated GFR > 60 Fasting Glucose 83 Calcium 9.7 Total Bilirubin 0.5 0.4 Direct Bilirubin 0.1 AST 12 13 ALT 8 8 Alkaline Phosphatase 56 66 Ammonia 26 Total Protein 7.3 7.6 Albumin 4.8 4.8 Triglycerides 57 Cholesterol 175 LDL Cholesterol, Calc 106 H HDL Cholesterol 58 Valproic Acid < 12.5 L DS: Summary Hospital Course Hospital Course: Patient is a 33 year old female with hx of Bipolar d/o who was brought into ER d/t confusion and disorganized behavior. Per crisis report, pt was found in her car with it running at [facility] for about four hours, reading a book, when the police approached her, pt presented disorganized, giggling to herself and then began crying, saying how beautiful the book was; of note, the book was a dictionary. Pt denied SI/HI/VH/AH. Pt resides in [place], [place]; where the police have been called for multiple wellness check in recent months. Pt provided minimal information during crisis assessment. 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 denies any substance use;UTOX negative. During admission assessment, psychotherapist social workerBel, present. Pt presents alert and oriented, calm, cooperative but guarded. delayed responses to questions. Pt stated, they brought me to the hospital because I was confused and disoriented. I was reading in a place I shouldn't have been reading. I was reading a beautiful book, the dictionary. It made me cry. I saw the meanings of things that I didn't know were beautiful ; pt became tearful when discussing topic. Pt hesitant when answering questions regarding her living situation, marital status and occupation. Pt reports she has been hospitalized several times ; but could not provide further details. Pt reports hx of taking [place] but had a bad reaction ; pt could not provide any more detail and does not recall other medications she has tried in the past. Pt stated, I'll take whatever you give me to feel better ; discussed risks/benefits of Depakote and Risperidal; pt agreed to trial. During hospital course, CV 15 minute safety checks obtain collateral Start: Depakote 250mg PO BID Risperidal 1mg PO BID Cogentin 0.5mg PO bedtime discharge planning continue current management and treatment plan. Consider alternative medication regimen and explore resistance to medications. continue to offer options for treatment. Social with peers. attending groups. rack production workerBel, present for assessment. Pt reports feeling good today; pt stated, I'm feeling better without the meds. I plan on reaching out to my outpatient psychiatrist to talk about medications . When social work offered to make follow up appointment for patient; pt stated, no, it's okay. I can handle that stuff when I get home . Pt reports she ended up in [place] because it was my day off work, I was just going for a drive and listening to music. I ended up opening the Dictionary and found words to be beautiful. I'm telling you, open one up and see the words you never knew. It's great . Pt denies SI/HI/VH/AH. Pt reports she is currently not interested in starting any medications and would rather discuss with outpatient provider. Plan to discharge patient tomorrow; pt agreeable to plan. Pt reports feeling good today; pt stated, I plan on following up with my psychiatrist. I feel great. I'm going to go back to work . Pt denies SI/HI/VH/AH. Time spent discussing smoking cessation with patient: 3 to 10 minutes Status at Discharge Cognitive/behavioral status at discharge: Patient was interviewed prior to discharge and found to be fully oriented and without SI or HI. Patient has insight and demonstrates good judgment in terms of wanting to pursue treatment. Patient has a safety plan that includes presenting to the closest ER or calling 911 if feeling unsafe. Functional status at discharge: independent ambulation Overall status at discharge: patient is back to baseline Time Spent with Patient Time attestation: Total time managing care of this patient today _20___ minutes. Time spent: Less than 30 minutes Discharge Plan Discharge Anticipated Discharge Date/Time: 09/27/23 11:00 Patient Disposition: Home, Self-Care Discharge Diagnosis: Bipolar d/o, PTSD Referrals: [facility] [Provider Group] - 1 Week (Patient to follow up with [facility] in 1 week.) Discharge Medications: Discontinued trazodone 50 mg Tablet 75 mg PO BEDTIME PRN (Reason: Sleep) Patient Comments: last filled 06/06/23 for 30 day supply fluoxetine [Prozac] 10 mg Capsule 10 mg PO DAILY Patient Comments: last filled 06/06/23 for 30 day supply propranolol 20 mg Tablet 20 mg PO DAILY PRN (Reason: panic) Patient Comments: last filled 05/29/23 for 30 day supply fluoxetine [Prozac] 20 mg Capsule 20 mg PO DAILY Patient Comments: last filled 06/16/23 for 30 day supply hydroxyzine pamoate 25 mg Capsule 25 mg PO BID Patient Comments: last filled 05/28/23 for 30 day supply magnesium oxide 400 mg magnesium Capsule 400 mg PO DAILY Patient Comments: last picked up 06/10/23 for 30 day supply Discharge Orders: Discharge Order (Routine); Ordered 09/27/23 Ordered By: Pilar Schulte Diet: Regular diet Activity on Discharge: As tolerated Stand Alone Forms: Patient Portal Discharge page Print Language: Kenyan Care Plan Goals: Maintain mood and safe behaviors Practice coping skills Continue with outpatient providers and reach out to them as needed Health Concerns: Mood stability and behaviors Plan of Treatment: Follow up with your PCP, psychiatric provider and other outpatient providers regarding above concerns Assessment: Patient was interviewed prior to discharge and found to be fully oriented and without SI or HI. Patient has insight and demonstrates good judgment in terms of wanting to pursue treatment. Patient has a safety plan that includes presenting to the closest ER or calling 911 if feeling unsafe. Discharge Date/Time: 09/27/23 10:45
== END 2023-09-27 10:45 | disposition home or self-care (01) | DRG 753 ==
PROVIDERS: Admitting Provider Psychiatry & Neurology Psychiatry; Responsible Provider Registered Nurse; Visit Provider Psychiatry & Neurology Psychiatry
DX: F31.9 Bipolar disorder, unspecified (principal); F17.210 Nicotine dependence, cigarettes, uncomplicated; Z71.6 Tobacco abuse counseling; F43.10 Post-traumatic stress disorder, unspecified; Z91.148 Patient's other noncompliance with medication regimen for other reason; Z79.899 Other long term (current) drug therapy
CPT/HCPCS: 36415; 80053; 80061; 80076; 80164; 82140

== ENCOUNTER → 2023-09-19 15:22 | Outpatient (BNV) | payer MEDICAID, SELFPAY | PROVIDERS: Admitting Provider Psychiatry & Neurology Psychiatry; Responsible Provider Registered Nurse; Visit Provider Student in an Organized Health Care Education/Training Program | DX: Z02.2 Encounter for examination for admission to residential institution (principal) | CPT/HCPCS: 99429 ==

== ENCOUNTER → 2023-09-19 15:22 | Outpatient (BNV) | payer MEDICAID, SELFPAY | PROVIDERS: Admitting Provider Psychiatry & Neurology Psychiatry; Responsible Provider Registered Nurse; Visit Provider Psychiatry & Neurology Psychiatry | DX: F31.63 Bipolar disorder, current episode mixed, severe, without psychotic features (principal); F43.11 Post-traumatic stress disorder, acute | CPT/HCPCS: 90792; 99231; 99232; 99238 ==